=== PATIENT | female | born 1975 | race Two or more races ===

== ENCOUNTER 2017-05-16 09:15 | Emergency (ER) | payer BC ==
[~2017-05-16] VITALS: Ht 167.6 cm; Wt 70.8 kg
[2017-05-16] MEDS ORDERED: Morphine Sulfate 4mg/ml Inj IM ONE (09:30)
[2017-05-16] MEDS ORDERED: Morphine Sulfate 4mg/ml Inj ONE (09:34)
[2017-05-16 09:47] VITALS: BP 106/64
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
[2017-05-16] MEDS ORDERED: Ketorolac 30mg Inj IM ONE (11:00)
--- NOTE | 2017-05-16 11:26 | Diagnostic Imaging Report ---
Indication: Neck pain. Technique: Continuous helical imaging of the cervical spine was obtained transaxially from the skull base to the upper thoracic spine. 2-D coronal and sagittal reformatted images were obtained. Automatic Exposure Control was utilized. Total Dose length Product (DLP): 295.[address] Dose Index Volume (CTDIvol): 12.35 mGy Comparison: None Findings: There is no evidence of an acute fracture or malalignment. Atlantoaxial alignment appears normal. Height and configuration of the vertebral bodies and intervertebral discs are within normal limits. Uncovertebral joints and facets are unremarkable. There is no soft tissue swelling. Impression: Negative cervical spine CT The CT scanner at [facility] is accredited by the [employer] and the scans are performed using dose optimization techniques as appropriate to a performed exam including Automatic Exposure control.
[2017-05-16] MEDS ORDERED: ROBAXIN-750750 MG PO (11:41)
[2017-05-16] MEDS ORDERED: TYLENOL EXTRA500 MG ORAL (11:41)
[2017-05-16 12:12] VITALS: BP 96/54
== END 2017-05-16 12:16 | disposition home or self-care (01) ==
LOC: EDBD 09:15 → EMR 10:55
DX: S16.1XXA Strain of muscle, fascia and tendon at neck level, initial encounter (principal); V43.52XA Car driver injured in collision with other type car in traffic accident, initial encounter; Y92.410 Unspecified street and highway as the place of occurrence of the external cause
CPT/HCPCS: 72125; 96372; 99284; J1885; J2270